=== PATIENT | male | born 1975 | race African-American/Black ===

== ENCOUNTER 2017-07-12 16:02 | Emergency (ER) | payer OTHER ==
[2017-07-12 16:18] VITALS: BP 150/77; PULSE 74; TEMP 97.9; BMI 38.3
[2017-07-12] MEDS ORDERED: CLINDAMYCIN HCL 150 MG CAPSULE (FP) PO ONE (16:19)
--- NOTE | 2017-07-12 16:19 | PDOC ---
History of Present Illness <Geena Ty - Last Filed: 07/12/17 16:21> - General History Source: Patient Exam Limitations: No Limitations - History of Present Illness Initial Comments: 07/12/17 17:29 The patient is a 41 year old male with a significant PMH of asthma who presents to the emergency department with painful chest abscess. The patient reports that he has had this abscess on his chest for about 5-6 months. The patient reports that he started to experience pain of his chest abscess 2 days ago. He reports that it had grown more than he was use to seeing it. The patient denies any numbness or tingling. He denies any fever, chills, nausea, vomiting or diarrhea. The patient denies chest pain other than abscess, shortness of breath, headache and dizziness.The patient reports a family history of diabetes and Hypertension. It is noted that the patient has had right hip replacement. The patient denies any other complaints. Allergies: NKA Past surgical history: Right hip replacement. Social history: None reported <Constantine Gonzales - Last Filed: 07/12/17 17:30> - General Chief Complaint: Abscess Boil Stated Complaint: LEFT CHEST ABSCESS Time Seen by Provider: 07/12/17 16:04 Past History - Past Medical History Asthma: Yes COPD: No - Suicide/Smoking/Psychosocial Hx Smoking Status: No Smoking History: Never smoked Number of Cigarettes Smoked Daily: 0 Hx Alcohol Use: No Drug/Substance Use Hx: No Substance Use Type: None <Geena Ty - Last Filed: 07/12/17 16:21> <Constantine Gonzales - Last Filed: 07/12/17 17:30> - Past Medical History Allergies/Adverse Reactions: Allergies Allergy/AdvReac Type Severity Reaction Status Date / Time No Known Allergies Allergy Verified 07/12/17 16:05 Home Medications: Ambulatory Orders No Home Medications 0 dose .ROUTE UTDICT 12/26/12 Albuterol Sulfate Inhaler - [Ventolin Hfa Inhaler -] 2 inh PO Q6H PRN 07/12/17 Clindamycin [Cleocin -] 450 mg PO Q8H #90 capsule 07/12/17 Review of Systems - Review of Systems Able to Perform ROS?: Yes Comments:: 07/12/17 17:29 HEAD, EYES, EARS, NOSE AND THROAT: No change in vision. No ear pain or discharge. No sore throat. CARDIOVASCULAR: No chest pain or shortness of breath. RESPIRATORY: No cough, wheezing, or hemoptysis. GASTROINTESTINAL: No nausea, vomiting, diarrhea or constipation. GENITOURINARY: No dysuria, frequency, or change in urination. MUSCULOSKELETAL: No joint or muscle swelling or pain. No neck or back pain. SKIN: (+) painful chest abscess. No rash NEUROLOGIC: No headache, vertigo, loss of consciousness, or change in strength/ sensation. ENDOCRINE: No increased thirst. No abnormal weight change. HEMATOLOGIC/LYMPHATIC: No anemia, easy bleeding, or history of blood clots. ALLERGIC/IMMUNOLOGIC: No hives or skin allergy. <Constantine Gonzales - Last Filed: 07/12/17 17:30> *Physical Exam - Vital Signs Last Vital Signs Temp Pulse Resp BP Pulse Ox 97.9 F 74 16 150/77 98 07/12/17 16:03 07/12/17 16:03 07/12/17 16:03 07/12/17 16:03 07/12/17 16:03 <Geena Ty - Last Filed: 07/12/17 16:21> - Vital Signs Last Vital Signs Temp Pulse Resp BP Pulse Ox 97.9 F 74 16 150/77 98 07/12/17 16:03 07/12/17 16:03 07/12/17 16:03 07/12/17 16:03 07/12/17 16:03 - Physical Exam Comments: 07/12/17 17:29 GENERAL: Awake, alert, and fully oriented, in no acute distress HEAD: No signs of trauma EYES: PERRLA, EOMI, sclera anicteric, conjunctiva clear ENT: Auricles normal inspection, hearing grossly normal, nares patent, oropharynx clear without exudates. Moist mucosa NECK: Normal ROM, supple, no lymphadenopathy, JVD, or masses LUNGS: Breath sounds equal, clear to auscultation bilaterally. No wheezes, and no crackles HEART: Regular rate and rhythm, normal S1 and S2, no murmurs, rubs or gallops ABDOMEN: Soft, nontender, normoactive bowel sounds. No guarding, no rebound. No masses EXTREMITIES: Normal range of motion, no edema. No clubbing or cyanosis. No cords, erythema, or tenderness NEUROLOGICAL: Cranial nerves II through XII grossly intact. Normal speech, normal gait SKIN: (+) medial breast mass with mild warmth. Mass is golf ball sized with no peau d'orange and no lymphadenopathy Dry, normal turgor, no rashes or lesions noted. <Constantine Gonzales - Last Filed: 07/12/17 17:30> ED Treatment Course - Medications Given in the ED: ED Medications Discontinued Medications Generic Name Dose Route Start Last Admin Trade Name Iris PRN Reason Stop Dose Admin Clindamycin HCl 450 mg 07/12/17 16:19 07/12/17 16:44 Cleocin - PO 07/12/17 16:20 450 mg ONCE ONE Administration <Constantine Gonzales - Last Filed: 07/12/17 17:30> Medical Decision Making - Medical Decision Making 07/12/17 16:21 41yo male with L breast mass and redness -suspect cellulitis of the breast with induration, however the patient will need further evaluation of this breast mass -no nipple drainage -no peau d'orange -no skin changes other than warmth and ttp -will treat for acute infection, however will need close follow up and poss mammogram and surgical eval of the area this was discussed in full detail with the patient pt states he understands that there is a breast mass that needs outpt follow up answered all questions will place on clinda currently. discussed all reasons to return to the ED and need for follow up with the PMD, clinic and surgeon. pt is stable for d/c to home <Geena Ty - Last Filed: 07/12/17 16:21> *DC/Admit/Observation/Transfer - Discharge Dispostion Admit: No - Attestations Physician Attestion: 07/12/17 16:32 I, Dr. Geena Ty, DO, attest that this document has been prepared under my direction and personally reviewed by me in its entirety. I further attest, that it accurately reflects all work, treatment, procedures and medical decision -making performed by me. <Geena Ty - Last Filed: 07/12/17 16:21> - Attestations Scribe Attestion: 07/12/17 17:30 Documentation prepared by Constantine Gonzales, acting as vp medical for Geena Ty MD. <Constantine Gonzales - Last Filed: 07/12/17 17:30> Diagnosis at time of Disposition: Breast mass, left - Discharge Dispostion Disposition: HOME Condition at time of disposition: Stable - Prescriptions Prescriptions: Clindamycin [Cleocin -] 450 mg PO Q8H #90 capsule - Referrals Referrals: eWi Carcamo MD [Staff Physician] - Dakota Carcamo [Staff Physician] - Alex Lan MD [Staff Physician] - Shelly Bates MD [Staff Physician] - Ted Rocha MD [Staff Physician] - [facility] [Provider Group] - Patient Instructions Printed Discharge Instructions: DI for Breast Mass -- Uncertain Cause Additional Instructions: Please make a follow up appointment this week with both the surgeon and the PMD for further evaluation of the Left Breast Mass. Please take all antibiotics as prescribed. Please return to immediately to the ED if you experience worsening pain, growth of the mass, drainage from the nipple, fever, chills, or any further complaints. You should undergo further imaging of the breast mass as an outpatient. Please return to the ED with any further questions or concerns.
[2017-07-12] MEDS ORDERED: CLINDAMYCIN HCL 150 MG CAPSULE (FP) ONE (16:38)
== END 2017-07-12 16:44 | disposition home or self-care (01) ==
LOC: FER 16:02
CPT/HCPCS: 99281-25

== ENCOUNTER 2017-11-30 08:29 | Emergency (ER) | payer SELFPAY ==
[2017-11-30] MEDS ORDERED: KETOROLAC TROMETHAMINE 30 MG/1 ML VIAL IM ONE (08:35)
--- NOTE | 2017-11-30 08:38 | PDOC ---
History of Present Illness - General Chief Complaint: Ear Problem Stated Complaint: LEFT EAR PAIN Time Seen by Provider: 11/30/17 08:33 - History of Present Illness Initial Comments: 11/30/17 08:37 42 years old no significant past medical history presents to the ED with several day history of left ear pain. Pain is worse with movement of the ear it is associated with a mild headache. No fever no neck stiffness no rash. No swimming. Symptoms are moderate progressively worsening persistent constant worse with movement. No alleviating factors. Past History - Past Medical History Allergies/Adverse Reactions: Allergies Allergy/AdvReac Type Severity Reaction Status Date / Time No Known Allergies Allergy Verified 07/12/17 16:05 Home Medications: Ambulatory Orders No Home Medications 0 dose .ROUTE UTDICT 12/26/12 Albuterol Sulfate Inhaler - [Ventolin Hfa Inhaler -] 2 inh PO Q6H PRN 07/12/17 Clindamycin [Cleocin -] 450 mg PO Q8H #90 capsule 07/12/17 Amoxicillin - [Amoxicillin 500mg Capsule -] 500 mg PO BID #14 capsule 11/30/17 Ciprofloxacin HCl/Dexameth [Ciprodex Otic Suspension] 4 drop OT BID #1 bottle Asthma: Yes COPD: No - Suicide/Smoking/Psychosocial Hx Smoking Status: No Smoking History: Never smoked Number of Cigarettes Smoked Daily: 0 Hx Alcohol Use: No Drug/Substance Use Hx: No Substance Use Type: None Review of Systems - Review of Systems Comments:: 11/30/17 08:37 ROS: A complete review of 10 out of 10 review of systems is taken and is negative apart from what is previously mentioned below and in the HPI. *Physical Exam - Physical Exam Comments: 11/30/17 08:37 Vitals: Triage Vital signs reviewed General Appearance: no acute distress, well nourished well developed, Head: Atraumatic, Eyes: Pupils equal reactive round, extraocular movement intact Ears: Unable to visualize left TM secondary to cerumen, pain with manipulation of the pinna, no mastoid tenderness to palpation. Nose: Nares patent bilaterally;no nasal congestion Throat: Posterior oropharynx without erythema, mucous membranes moist, Neck: Supple;No Nucal rigidity Chest Wall: Nontender Cardiac: Regular rate and rhythym, no murmurs, no rubs, no gallops, Lungs: Clear to auscultation bilateral, good air movement bilaterally, Skin: Warm and dry, no rashes or lesions, no rash, no petechiae Psych: normal mood, normal affect Medical Decision Making - Medical Decision Making 11/30/17 08:38 History examination consistent with otitis externa. Unable to visualize the TM secondary to cerumen. We'll recommend Ciprodex as well as amoxicillin. Patient provided with ENT follow-up. Findings, the need for follow-up, strict return instructions discussed with patient. *DC/Admit/Observation/Transfer Diagnosis at time of Disposition: Otitis externa Qualifiers: Otitis externa type: unspecified type Chronicity: unspecified Laterality: left Qualified Code(s): H60.92 - Unspecified otitis externa, left ear - Discharge Dispostion Disposition: HOME Decision to Admit order: No - Referrals Referrals: Manan Andre MD [Staff Physician] - - Patient Instructions Printed Discharge Instructions: Otitis Externa Additional Instructions: Ciprodex eardrops as prescribed to affected ear 1 week. Amoxicillin as prescribed to affected ear 1 week. Alternate Tylenol Motrin as directed on package as needed for pain. Follow-up with Dr. Andre ENT in 2-3 days. Return to ED for any severe headache fever neck pain severe worsening symptoms or for any concerns. - Post Discharge Activity
[2017-11-30 08:42] VITALS: BP 145/83; PULSE 60; TEMP 98.1; BMI 39.7
[2017-11-30] MEDS ORDERED: KETOROLAC TROMETHAMINE 30 MG/1 ML VIAL ONE (08:42)
== END 2017-11-30 08:49 | disposition home or self-care (01) ==
LOC: FER 08:29
PROC: 3E0233Z Introduction of Anti-inflammatory into Muscle, Percutaneous Approach (ICD-10-PCS; principal; 2017-11-30)
DX: H60.92 Unspecified otitis externa, left ear (principal); J45.909 Unspecified asthma, uncomplicated
CPT/HCPCS: 99281-25

== ENCOUNTER 2017-12-01 10:12 | Inpatient (IN) | payer OTHER ==
--- NOTE | 2017-12-01 10:28 | PDOC ---
History of Present Illness - General Chief Complaint: Pain Stated Complaint: LEFT EAR INFECTION HEADACHE Time Seen by Provider: 12/01/17 10:27 History Source: Patient (Patient seen in this ER 24 hours ago for left ear external infection. He reported did not get the atbc ear drops from pharmacy. He atributed sathish inflammation to frequent use of Q tips in the left ear. Patient informed us that he had increased pain and swelling on the left ear lobe , the surrounding facial area. ) Exam Limitations: No Limitations - History of Present Illness Timing/Duration: getting worse Severity: moderate, severe Modifying Factors: improves with: medication Associated Symptoms: reports: fever/chills Past History - Travel Traveled outside of the country in the last 30 days: No Close contact w/someone who was outside of country & ill: No - Past Medical History Allergies/Adverse Reactions: Allergies Allergy/AdvReac Type Severity Reaction Status Date / Time No Known Allergies Allergy Verified 11/30/17 08:37 Home Medications: Ambulatory Orders Amoxicillin - [Amoxicillin 500mg Capsule -] 500 mg PO BID #14 capsule 11/30/17 Asthma: Yes COPD: No Diabetes: No - Suicide/Smoking/Psychosocial Hx Smoking Status: No Smoking History: Never smoked Have you smoked in the past 12 months: No Number of Cigarettes Smoked Daily: 0 Information on smoking cessation initiated: No Hx Alcohol Use: No Drug/Substance Use Hx: No Substance Use Type: None Review of Systems - Review of Systems Able to Perform ROS?: Yes Is the patient limited Cypriot proficient: Yes Constitutional: Yes: Symptoms Reported, See HPI HEENTM: Yes: See HPI, Other (left ear pain, facial pain and swelling) Respiratory: No: Symptoms reported, See HPI, Cough, Orthopnea, Shortness of Breath, SOB with Exertion, SOB at Rest, Stridor, Wheezing, Productive cough, Hemoptysis, Other Cardiac (ROS): No: Symptoms Reported, See HPI, Chest Pain, Edema, Irregular Heart Rate, Lightheadedness, Palpitations, Syncope, Chest Tightness, Other ABD/GI: No: Symptoms Reported, See HPI, Abdominal Distended, Abd. Pain w/ defecation, Blood Streaked Bowels, Constipated, Diarrhea, Difficulty Swallowing , Nausea, Poor Appetite, Poor Fluid Intake, Rectal Bleeding, Vomiting, Indigestion, Abdominal cramping, Tarry Stools, Other All Other Systems: Reviewed and Negative *Physical Exam - Vital Signs Last Vital Signs Temp Pulse Resp BP Pulse Ox 100.2 F H 81 16 143/91 100 12/01/17 10:13 12/01/17 10:13 12/01/17 10:13 12/01/17 10:13 12/01/17 10:13 - Physical Exam General Appearance: Yes: Nourished, Appropriately Dressed, Moderate Distress, Obese HEENT: positive: HERON, Other (Swelling of left side of the face, , ear lobe and ear canal) Neck: positive: Supple Respiratory/Chest: positive: Lungs Clear Cardiovascular: positive: Regular Rhythm, Regular Rate Gastrointestinal/Abdominal: negative: Normal Bowel Sounds, Tender, Flat, Soft, Organomegaly, Pulsatile Mass, Increased Bowel Sounds, Decreased BS, Protuberent , Distended, Guarding, Rebound, Tenderness, Hernia, Mass, Hepatomegaly, Spleenomegaly, Other Lymphatic: positive: Adenopathy Musculoskeletal: positive: Normal Inspection Extremity: positive: Normal Capillary Refill Integumentary: positive: Normal Color Neurologic: positive: correctional casework specialist II-XII NML intact, Fully Oriented, Alert ED Treatment Course - LABORATORY CBC & Chemistry Diagram: 12/01/17 10:55 12/01/17 10:50 Medical Decision Making - Medical Decision Making My impression is : Left facial Cellulitis, sec to external ear infection. iv atbc started Discussed with the admitting attending, Dr Gomez 12/01/17 12:42 *DC/Admit/Observation/Transfer Diagnosis at time of Disposition: Facial cellulitis - Discharge Dispostion Condition at time of disposition: Stable Decision to Admit order: Yes - Referrals - Patient Instructions - Post Discharge Activity
[2017-12-01] MEDS ORDERED: KETOROLAC TROMETHAMINE 30 MG/1 ML VIAL IVPUSH ONE (10:42)
[2017-12-01] MEDS ORDERED: AMPICILLIN NA/SULBACTAM NA 3 GM in SODIUM CHLORIDE 100 ML IVPB ONE (10:42)
[2017-12-01] MEDS ORDERED: AMPICILLIN NA/SULBACTAM NA 3 GM VIAL ONE (10:58)
[2017-12-01] MEDS ORDERED: KETOROLAC TROMETHAMINE 30 MG/1 ML VIAL ONE (10:58)
[2017-12-01 11:03] LABS: BASO % 0.7 % (0-2.0); HEMATOCRIT 47.2 % (35.4-49); HEMOGLOBIN 15.1 GM/dl (11.7-16.9); LYMPH % 11.9 % (8-40); MCH 27.9 pg (25.7-33.7); MEAN CELL VOLUME 86.9 fl (80-96); MEAN PLT VOLUME 8.6 fl (7.5-11.1); MONO % 7.8 % (3.8-10.2); NEUT % 79.6 % (42.8-82.8); PLATELET COUNT 208 K/MM3 (134-434); RBC 5.44 M/mm3 (4.00-5.60); RDW 15.1 % (11.9-15.9); WHITE BLOOD COUNT 10.7 K/mm3 (4.0-10.8)
[2017-12-01 11:42] LABS: ALBUMIN 4.2 g/dl (3.5-5.0); ALK PHOS 62 U/L (32-92); ANION GAP 7 MMOL/L (8-16); BILIRUBIN,TOTAL 1.2 mg/dl (0.2-1.0); BLOOD UREA NITROGEN 11 mg/dl (7-18); CALCIUM 9.2 mg/dl (8.4-10.2); CHLORIDE 103 mmol/L (98-107); CO2 27 mmol/L (22-28); CREATININE 1.1 mg/dl (0.6-1.3); GLUCOSE,RANDOM 108 mg/dl (74-106); POTASSIUM 3.8 mmol/L (3.5-5.1); SGOT/AST 19 U/L (10-42); SGPT/ALT 25 U/L (10-40); SODIUM 137 mmol/L (136-145); TOT PROT 7.2 g/dl (6.4-8.3)
--- NOTE | 2017-12-01 15:50 | HP ---
Admitting History and Physical - Primary Care Physician PCP: Ana M Gomez - Admission History of Present Illness: Patient (Patient seen in this ER 24 hours ago for left ear external infection. He reported did not get the abx ear drops from pharmacy. He use Q tips in the left ear. Patient informed us that he had increased pain and swelling on the left ear lobe , the surrounding facial area. ) - Smoking History Smoking history: Never smoked Have you smoked in the past 12 months: No Aproximately how many cigarettes per day: 0 - Alcohol/Substance Use Hx Alcohol Use: No Home Medications - Allergies Allergies/Adverse Reactions: Allergies Allergy/AdvReac Type Severity Reaction Status Date / Time No Known Allergies Allergy Verified 11/30/17 08:37 - Home Medications Home Medications: Ambulatory Orders Amoxicillin - [Amoxicillin 500mg Capsule -] 500 mg PO BID #14 capsule 11/30/17 Amoxicillin/Potassium Clav [Augmentin 875-125 Tablet] 1 each PO BID #10 tablet 12/03/17 Ciprofloxacin HCl/Dexameth [Ciprodex Otic Suspension] 4 drop DAILY #1 bottle 12/03/17 Physical Examination Vital Signs: Vital Signs Temperature 98.7 F 12/01/17 15:43 Pulse Rate 78 12/01/17 15:43 Respiratory Rate 16 12/01/17 15:43 Blood Pressure 108/69 12/01/17 15:43 O2 Sat by Pulse Oximetry (%) 100 12/01/17 15:43 Constitutional: Yes: Well Nourished HENT: Yes: Other (swelling face L side) Cardiovascular: Yes: Regular Rate and Rhythm Respiratory: Yes: CTA Bilaterally Gastrointestinal: Yes: Normal Bowel Sounds Extremities: Yes: WNL Neurological: Yes: Alert, Oriented Labs: CBC, BMP 12/01/17 10:55 12/01/17 10:50 Problem List - Problems (1) Facial cellulitis Assessment/Plan: on iv abx id on board surgery eval Code(s): L03.211 - CELLULITIS OF FACE (2) Otitis externa Assessment/Plan: on abx ent consult Code(s): H60.90 - UNSPECIFIED OTITIS EXTERNA, UNSPECIFIED EAR Assessment/Plan Laboratory Tests 12/01/17 12/01/17 12/01/17 10:50 10:50 10:55 WBC 10.7 RBC 5.44 Hgb 15.1 Hct 47.2 MCV 86.9 MCH 27.9 MCHC 32.0 RDW 15.1 Plt Count 208 MPV 8.6 Absolute Neuts (auto) 8.5 Neutrophils % 79.6 Lymphocytes % 11.9 Monocytes % 7.8 Eosinophils % 0.0 Basophils % 0.7 Sodium 137 Potassium 3.8 Chloride 103 Carbon Dioxide 27 Anion Gap 7 L BUN 11 Creatinine 1.1 Creat Clearance w eGFR > 60 Random Glucose 108 H Lactic Acid 1.1 Calcium 9.2 Total Bilirubin 1.2 H AST 19 ALT 25 Alkaline Phosphatase 62 Total Protein 7.2 Albumin 4.2 Active Medications Generic Name Dose Route Start Last Admin Trade Name Freq PRN Reason Stop Dose Admin Acetaminophen 650 mg 12/01/17 15:54 12/01/17 17:34 Tylenol - PO 650 mg Q6H PRN Administration FEVER Ampicillin Sodium/Sulbactam Sodium 3 gm 12/01/17 18:00 12/01/17 17:36 Unasyn 3 Gm (Pre-Docked) IVPB 12/02/17 10:01 3 gm Q8H-IV LUIS ARMANDO Administration
[2017-12-01 17:02] VITALS: BMI 39.1
[2017-12-01] MEDS: ACETAMINOPHEN 325 MG TABLET (FP) PO PRN (17:34)
[2017-12-01] MEDS: AMPICILLIN NA/SULBACTAM NA 3 GM/100 ML PRE-DOCKED IVPB SCH (17:36)
[2017-12-01] MEDS: KETOROLAC TROMETHAMINE 30 MG/1 ML VIAL IVPUSH SCH (21:56)
[2017-12-02] MEDS: AMPICILLIN NA/SULBACTAM NA 3 GM/100 ML PRE-DOCKED IVPB SCH ×2 (01:22→10:11)
[2017-12-02] MEDS: KETOROLAC TROMETHAMINE 30 MG/1 ML VIAL IVPUSH SCH ×3 (06:07→18:02)
[2017-12-02 07:58] LABS: BASO % 0.3 % (0-2.0); EOS % 0.6 % (0-4.5); HEMATOCRIT 41.1 % (35.4-49); HEMOGLOBIN 13.5 GM/dl (11.7-16.9); LYMPH % 21.8 % (8-40); MCH 28.5 pg (25.7-33.7); MCHC 32.8 g/dl (32.0-35.9); MEAN CELL VOLUME 86.9 fl (80-96); MEAN PLT VOLUME 8.5 fl (7.5-11.1); MONO % 9.1 % (3.8-10.2); NEUT % 68.2 % (42.8-82.8); PLATELET COUNT 171 K/MM3 (134-434); RBC 4.73 M/mm3 (4.00-5.60); WHITE BLOOD COUNT 7.6 K/mm3 (4.0-10.8)
[2017-12-02 08:04] LABS: ALBUMIN 3.4 g/dl (3.5-5.0); ALK PHOS 48 U/L (32-92); ANION GAP 7 MMOL/L (8-16); BILIRUBIN,TOTAL 0.9 mg/dl (0.2-1.0); BLOOD UREA NITROGEN 10 mg/dl (7-18); CALCIUM 8.8 mg/dl (8.4-10.2); CHLORIDE 102 mmol/L (98-107); CO2 25 mmol/L (22-28); GLUCOSE,RANDOM 121 mg/dl (74-106); POTASSIUM 3.8 mmol/L (3.5-5.1); SGOT/AST 17 U/L (10-42); SGPT/ALT 19 U/L (10-40); SODIUM 134 mmol/L (136-145); TOT PROT 6.2 g/dl (6.4-8.3)
[2017-12-02] MEDS: ACETAMINOPHEN 325 MG TABLET (FP) PO PRN (10:11)
--- NOTE | 2017-12-02 11:24 | PN ---
Progress Note, Physician History of Present Illness: 42 y.o. AA male with no significant PMH presents with c/o Lt ear pain/slight decreased hearing and mild surrounding facial swelling. Pt was initially seen in the ER the day prior and discharged with prescriptions for amoxicillin po and cipro otic soln. He states he took 3 doses of the amoxicillin but not the ear drops and returned to the ER with c/o severe pain in Lt ear and noticed some swelling surrounding Lt ear extending to face. Pt reports having fever and chills the night prior to onset of symptoms. In the ER yesterday pt was found to have a low grade fever 100.2. He denies any ocular symptoms, sinus tenderness , headache, sore throat, toothache. - Current Medication List Current Medications: Active Medications Acetaminophen (Tylenol -) 650 mg PO Q6H PRN PRN Reason: FEVER Last Admin: 12/02/17 10:11 Dose: 650 mg Ketorolac Tromethamine (Toradol Injection -) 30 mg IVPUSH Q8H-IV LUIS ARMANDO Stop: 12/06/17 21:44 Last Admin: 12/02/17 10:11 Dose: 30 mg - Objective Vital Signs: Vital Signs Temperature 99.3 F 12/02/17 06:19 Pulse Rate 66 12/02/17 06:19 Respiratory Rate 18 12/02/17 06:19 Blood Pressure 113/60 12/02/17 06:19 O2 Sat by Pulse Oximetry (%) 99 12/02/17 06:19 Constitutional: Yes: No Distress, Calm Eyes: Yes: Conjunctiva Clear HENT: Yes: Atraumatic, Normocephalic, Other (Lt ear canal impacted, Lt pinna tenderness, minimal surrounding facial tenderness/edema) Neck: Yes: Supple, Trachea Midline Cardiovascular: Yes: Regular Rate and Rhythm Respiratory: Yes: CTA Bilaterally Gastrointestinal: Yes: Normal Bowel Sounds, Soft Genitourinary: Yes: WNL Extremities: Yes: WNL Integumentary: Yes: WNL Neurological: Yes: Alert, Oriented Labs: CBC, BMP 12/02/17 07:15 12/02/17 07:15 Assessment/Plan 42 y.o. male with no PMH with Lt ear pain, Lt facial edema, low grade fever Lt otitis Facial cellulitis Fever - continue Unasyn, start cipro po - Lt ear canal impacted/cerumen - consider ENT evaluation - will switch to po antibiotics if remains afebrile, continues to improve will follow
[2017-12-02] MEDS: AMPICILLIN NA/SULBACTAM NA 1.5 GM/100 ML BAG IVPB SCH ×3 (12:13→21:26)
--- NOTE | 2017-12-02 14:01 | PN ---
Progress Note, Physician - Current Medication List Current Medications: Active Medications Acetaminophen (Tylenol -) 650 mg PO Q6H PRN PRN Reason: FEVER Last Admin: 12/02/17 10:11 Dose: 650 mg Ciprofloxacin (Cipro (Restricted To Id)) 500 mg PO BID LUIS ARMANDO Ampicillin Sodium/Sulbactam Sodium (Unasyn 1.5 Gm (Pre-Docked)) 1.5 gm in 100 mls @ 200 mls/hr IVPB Q6H-IV LUIS ARMANDO Last Admin: 12/02/17 12:13 Dose: 200 mls/hr Ketorolac Tromethamine (Toradol Injection -) 30 mg IVPUSH Q8H-IV LUIS ARMANDO Stop: 12/06/17 21:44 Last Admin: 12/02/17 10:11 Dose: 30 mg - Objective Vital Signs: Vital Signs Temperature 99.3 F 12/02/17 06:19 Pulse Rate 66 12/02/17 06:19 Respiratory Rate 18 12/02/17 06:19 Blood Pressure 113/60 12/02/17 06:19 O2 Sat by Pulse Oximetry (%) 99 12/02/17 06:19 Constitutional: Yes: No Distress HENT: Yes: Other (left side of face swollen) Neck: Yes: Supple Cardiovascular: Yes: Regular Rate and Rhythm Respiratory: Yes: CTA Bilaterally Gastrointestinal: Yes: Normal Bowel Sounds Extremities: Yes: WNL Neurological: Yes: Alert, Oriented Labs: CBC, BMP 12/02/17 07:15 12/02/17 07:15 Problem List - Problems (1) Facial cellulitis Assessment/Plan: on iv abx id on board surgery eval Code(s): L03.211 - CELLULITIS OF FACE (2) Otitis externa Code(s): H60.90 - UNSPECIFIED OTITIS EXTERNA, UNSPECIFIED EAR
--- NOTE | 2017-12-02 19:17 | CONSULT ---
Consult - text type - Consultation Consultation Note: ENT consult 42 yo man with severe left otalgia x 2 days. Associated decreased hearing. Much improved on po abx. Long hx of itchy ears, often manipulates them with objects in his ear canals. P/WD obese BM sitting comfortably in bed, in NAD AD narrow EAC, cerumen, TM grossly normal edematous and narrow EAC, cerumen and discharge, TM not seen Nose is patent OC/OP normal Neck mildly tender left TMJ and upper SCM Imp: left acute otitis externa, cerumen impactions, chronic itchy ears Recommend begin ototopical antibiotics, such as cortisporin otic suspension or ciprodex, and outpatient ENT follow up
[2017-12-02] MEDS: CIPROFLOXACIN 250 MG TABLET (RESTRICTED TO ID) PO SCH (21:28)
[2017-12-02] MEDS ORDERED: PT OWN MED DRAWER 7, Y5N ONE (21:30)
[2017-12-03] MEDS: KETOROLAC TROMETHAMINE 30 MG/1 ML VIAL IVPUSH SCH ×2 (02:00→09:40)
[2017-12-03] MEDS: AMPICILLIN NA/SULBACTAM NA 1.5 GM/100 ML BAG IVPB SCH ×3 (03:27→15:49)
[2017-12-03] MEDS ORDERED: PT OWN MED DRAWER 7, Y5N ONE (09:35)
[2017-12-03] MEDS: CIPROFLOXACIN 250 MG TABLET (RESTRICTED TO ID) PO SCH (09:39)
--- NOTE | 2017-12-03 11:51 | PN ---
Progress Note, Physician History of Present Illness: Pt states he feels better. Less pain in Lt ear and afebrile. ENT consult appreciated. - Current Medication List Current Medications: Active Medications Acetaminophen (Tylenol -) 650 mg PO Q6H PRN PRN Reason: FEVER Last Admin: 12/02/17 10:11 Dose: 650 mg Ciprofloxacin (Cipro (Restricted To Id)) 500 mg PO BID LUIS ARMANDO Last Admin: 12/03/17 09:39 Dose: 500 mg Ampicillin Sodium/Sulbactam Sodium (Unasyn 1.5 Gm (Pre-Docked)) 1.5 gm in 100 mls @ 200 mls/hr IVPB Q6H-IV LUIS ARMANDO Last Admin: 12/03/17 09:40 Dose: 200 mls/hr Ketorolac Tromethamine (Toradol Injection -) 30 mg IVPUSH Q8H-IV LUIS ARMANDO Stop: 12/06/17 21:44 Last Admin: 12/03/17 09:40 Dose: 30 mg - Objective Vital Signs: Vital Signs Temperature 98.6 F 12/03/17 05:35 Pulse Rate 69 12/03/17 05:35 Respiratory Rate 18 12/03/17 05:35 Blood Pressure 118/59 12/03/17 05:35 O2 Sat by Pulse Oximetry (%) 100 12/03/17 07:57 Constitutional: Yes: No Distress, Calm HENT: Yes: Other (Lt ear minimal tenderness, +cerumen, no pustular d/c) Neck: Yes: Supple Cardiovascular: Yes: Regular Rate and Rhythm Respiratory: Yes: Regular Gastrointestinal: Yes: Normal Bowel Sounds, Soft Genitourinary: Yes: WNL Extremities: Yes: WNL Edema: No Integumentary: Yes: Other (No left facial edema/resolved) Neurological: Yes: Alert, Oriented Labs: CBC, BMP 12/02/17 07:15 12/02/17 07:15 Assessment/Plan 42 y.o. male with no PMH with Lt ear pain, Lt facial edema, low grade fever Lt otitis externa Facial cellulitis - improved Fever - resolved - d/c IV antibiotics -- switch to augmentin 875 po BID x 5 days, ciprodex otic 4 drops to Left ear x 1 week -- ENT f/u as outpt.
[2017-12-03 14:22] VITALS: PULSE 58; TEMP 98.2
[2017-12-03 14:24] VITALS: BP 123/61
--- NOTE | 2017-12-03 14:59 | PN ---
Progress Note, Physician - Current Medication List Current Medications: Active Medications Acetaminophen (Tylenol -) 650 mg PO Q6H PRN PRN Reason: FEVER Last Admin: 12/02/17 10:11 Dose: 650 mg Ciprofloxacin (Cipro (Restricted To Id)) 500 mg PO BID LUIS ARMANDO Last Admin: 12/03/17 09:39 Dose: 500 mg Ampicillin Sodium/Sulbactam Sodium (Unasyn 1.5 Gm (Pre-Docked)) 1.5 gm in 100 mls @ 200 mls/hr IVPB Q6H-IV LUIS ARMANDO Last Admin: 12/03/17 09:40 Dose: 200 mls/hr Ketorolac Tromethamine (Toradol Injection -) 30 mg IVPUSH Q8H-IV LUIS ARMANDO Stop: 12/06/17 21:44 Last Admin: 12/03/17 09:40 Dose: 30 mg - Objective Vital Signs: Vital Signs Temperature 98.2 F 12/03/17 14:21 Pulse Rate 58 L 12/03/17 14:21 Respiratory Rate 18 12/03/17 14:21 Blood Pressure 123/61 12/03/17 14:21 O2 Sat by Pulse Oximetry (%) 100 12/03/17 14:21 Labs: CBC, BMP 12/02/17 07:15 12/02/17 07:15 Problem List - Problems (1) Facial cellulitis Code(s): L03.211 - CELLULITIS OF FACE (2) Otitis externa Code(s): H60.90 - UNSPECIFIED OTITIS EXTERNA, UNSPECIFIED EAR
--- NOTE | 2017-12-03 15:00 | DS ---
Physical Examination Vital Signs: Vital Signs Temperature 98.2 F 12/03/17 14:21 Pulse Rate 58 L 12/03/17 14:21 Respiratory Rate 18 12/03/17 14:21 Blood Pressure 123/61 12/03/17 14:21 O2 Sat by Pulse Oximetry (%) 100 12/03/17 14:21 Labs: CBC, BMP 12/02/17 07:15 12/02/17 07:15 Discharge Summary Reason For Visit: CELLULITIS OF FACE Current Active Problems Facial cellulitis (Acute) Condition: Stable - Instructions - Home Medications Comprehensive Discharge Medication List: Ambulatory Orders Amoxicillin - [Amoxicillin 500mg Capsule -] 500 mg PO BID #14 capsule 11/30/17 Amoxicillin/Potassium Clav [Augmentin 875-125 Tablet] 1 each PO BID #10 tablet 12/03/17 Ciprofloxacin HCl/Dexameth [Ciprodex Otic Suspension] 4 drop DAILY #1 bottle 12/03/17
== END 2017-12-03 16:40 | disposition home or self-care (01) | DRG 383 ==
LOC: FER 10:12 → FM/S 12:38
PROVIDERS: ADMIT Internal Medicine; ATTEND Internal Medicine
DX: L03.211 Cellulitis of face (principal); E66.9 Obesity, unspecified; Z68.39 Body mass index [BMI] 39.0-39.9, adult; H61.23 Impacted cerumen, bilateral; H60.502 Unspecified acute noninfective otitis externa, left ear
CPT/HCPCS: 36415; 80053; 83605; 85025; 87040; 99283-25